=== PATIENT | female | born 2000 | race Caucasian/White ===

== ENCOUNTER 2023-08-04 02:51 | Observation (INO) | payer SELFPAY ==
[2023-08-04] MEDS ORDERED: Acetaminophen 500 MG TAB PO PRN (03:02)
[2023-08-04] MEDS ORDERED: Docusate 100 MG CAP PO PRN (03:02)
[2023-08-04] MEDS ORDERED: Promethazine HCl 25 MG/ML VIAL IM PRN (03:02)
[2023-08-04] MEDS ORDERED: Ondansetron PF 4 MG/2 ML Vial IVP PRN (03:02)
[2023-08-04] MEDS ORDERED: Tranexamic Acid 1,000 MG/10 ML VIAL IVP PRN (03:02)
[2023-08-04] MEDS ORDERED: Lactated Ringer's 1,000 ML IV SCH (03:15)
[2023-08-04] MEDS ORDERED: Insulin Regular 300 UNITS/3 ML VIAL SC SCH (03:30)
[2023-08-04] MEDS ORDERED: HumaLOG 300 UNITS/3 ML VIAL SC PRN (04:43)
[2023-08-04] MEDS ORDERED: Dextrose 50% Abboject 50 ML SYRINGE SLOW IVP PRN (04:43)
[2023-08-04] MEDS ORDERED: Glucagon 1 MG/ML KIT IM PRN (04:43)
[2023-08-04] MEDS ORDERED: Dextrose 5% in Water 1,000 ML IV PRN (04:43)
[2023-08-04] MEDS: HumaLOG 300 UNITS/3 ML VIAL SC PRN ×2 (07:08→16:59)
[2023-08-04] MEDS: Lantus 1000 UNITS/10 ML VIAL SC SCH (10:34)
[2023-08-04 13:08] LABS: Hemoglobin A1c 8.1 % (4.0-6.0)
[2023-08-04 14:05] LABS: #Basophils 0.1 10x3/uL (0.0-0.2); #Monocytes 0.7 10x3/uL (0.0-1.1); #Neutrophils 6.8 10x3/uL (1.5-8.4); %Basophils 0.5 % (0.0-2.0); %Eosinophils 0.3 % (0.0-6.0); %Lymphocytes 29.8 % (18.0-47.0); %Monocytes 6.8 % (0.0-10.0); %Neutrophils 62.2 % (40.0-75.0); Hematocrit 33.1 % (34.9-44.5); Hemoglobin 10.6 g/dL (12.0-15.5); Mean Corpuscular Hemoglobin 24.1 pg (27.0-33.0); Mean Corpuscular Volume 75.4 fl (81.6-98.3); Platelet Count 469 10x3/uL (150-450); RBC Distribution Width 17.9 % (11.5-14.5); Red Blood Cell (RBC) Count 4.39 10x6/uL (3.90-5.03); White Blood Cell (WBC) Count 10.9 10x3/uL (3.5-10.5)
[2023-08-04] MEDS: Lactated Ringer's 1,000 ML IV SCH (17:02)
[2023-08-05 04:26] LABS: Hematocrit 31.2 % (34.9-44.5); Hemoglobin 9.9 g/dL (12.0-15.5)
[2023-08-05] MEDS: HumaLOG 300 UNITS/3 ML VIAL SC PRN (06:02)
[2023-08-05] MEDS: Lactated Ringer's 1,000 ML IV SCH (09:07)
[2023-08-05] MEDS: Lantus 1000 UNITS/10 ML VIAL SC SCH (09:16)
[2023-08-05 11:15] VITALS: BP 122/69; TEMP 98.3
[2023-08-05 13:40] LABS: Thyroid Peroxidase IgG Ab Less than 4.0 IU/mL (<25 Normal)
== END 2023-08-05 15:57 | disposition home or self-care (01) ==
LOC: CSHPED 02:51
PROVIDERS: ADMIT Obstetrics & Gynecology; ATTEND Obstetrics & Gynecology
DX: N93.8 Other specified abnormal uterine and vaginal bleeding (principal); E11.9 Type 2 diabetes mellitus without complications; D64.9 Anemia, unspecified; E66.01 Morbid (severe) obesity due to excess calories; Z68.41 Body mass index [BMI] 40.0-44.9, adult
CPT/HCPCS: 36415; 36416; 83036; 84443; 85014; 85018; 85025; 85247; 86376; 86800; 86850; 86900; 86901; G0378; J1815; J7120; P9016